=== PATIENT | male | born 1980 | race Caucasian/White ===

== ENCOUNTER 2016-08-14 13:35 | Emergency (ER) | payer BC ==
[~2016-08-14] VITALS: Ht 188 cm; Wt 89.0 kg
[2016-08-14 13:43] VITALS: Ht 188 cm; Wt 89.0 kg
[2016-08-14] MEDS ORDERED: GLUCAGON INJ 1 MG in SYRINGE 0 ML IV STA (13:57)
[2016-08-14] MEDS ORDERED: LORAZEPAM 2 MG/ML 1 ML VIAL IV STA (13:57)
[2016-08-14] MEDS ORDERED: RANI150T3 PO (14:13)
[2016-08-14] MEDS ORDERED: GLUCAGON INJ 1 MG in SYRINGE 0 ML IV ONE (14:15)
[2016-08-14] MEDS ORDERED: OMEP40CA41 PO (16:00)
--- NOTE | 2016-08-14 16:01 | EMERGENCY ROOM VISIT NOTE ---
History First contact with patient: 13:45 Chief Complaint: FOOD BOLUS Stated Complaint: SOMETHING STUCK IN THROAT Nursing Triage Summary: pt to the ED after eating lunch and feels like a dimas is stuck in his throat pt states he can drink and swallow water and able to speak without difficulty History of Present Illness The patient is a 35 year old male who presents to the Emergency Room with complaints of a possible fluid bolus. The patient reports that he was eating lunch and ate a kinyarwanda dimas and felt like it was stuck in his throat. He has been drinking water without difficulty. The patient states that he is very anxious about his symptoms. This occurred approximate 2 hours ago and he has been drinking a large amount of water since then. He states this has happened one time previously, when the patient was 5 years old. He denies any difficulty breathing. He denies any nausea, vomiting or abdominal pain. Review of Systems A complete 10-point Review of Systems was discussed with the patient, with pertinent positives and negatives listed in the History of Present Illness. All remaining Review of Systems questions can be considered negative unless otherwise specified. Social History Smoking Status: Never Smoker Current/Historical Medications Scheduled Omeprazole (Prilosec), 40 MG PO DAILY Ranitidine Hcl (Zantac), 150 MG PO BID Allergies Coded Allergies: Sulfa Antibiotics (Verified Allergy, Unknown, RASH, 08/14/16) Physical Exam Vital Signs Date Time Temp Pulse Resp B/P Pulse Ox O2 Delivery O2 Flow Rate FiO2 08/14/16 16:06 36.3 111 18 138/91 97 08/14/16 16:03 111 18 138/91 97 Room Air 08/14/16 14:54 112 18 142/94 97 Room Air 08/14/16 13:43 36.3 116 18 140/92 98 Physical Exam VITALS: Vitals are noted on the nurse's note and reviewed by myself. Vital signs stable. GENERAL: This is a 35-year-old male, in no acute distress, nondiaphoretic, well- developed well-nourished. MOUTH: Mucous membranes moist. Tonsils are not enlarged. Pharynx without erythema or exudate. Uvula midline. Airway patent. NECK: Supple without nuchal rigidity. No lymphadenopathy. HEART: Regular rate and rhythm without murmurs gallops or rubs. LUNGS: Clear to auscultation bilaterally without wheezes, rales or rhonchi. ABDOMEN: Positive bowel sounds x 4. Soft, nontender to palpation. NEURO: Patient was alert and oriented to person place and time. Medical Decision & Procedures Medications Administered Medications (Trade) Dose Ordered Sig/Javy Route Start Time Stop Time Status Last Admin Dose Admin Lorazepam 1 mg 1 mg NOW STAT IV 08/14/16 13:57 08/14/16 14:00 DC 08/14/16 14:20 1 MG Glucagon/Syringe (Glucagon Inj/ Syringe) 1 ml @ 1 mls/min NOW ONCE IV 08/14/16 14:15 08/14/16 14:16 DC 08/14/16 14:22 1 MLS/MIN Medical Decision Differential diagnosis includes food bolus, esophagitis, among others. The patient was evaluated as above. IV access was obtained. The patient was treated with 1 mg Ativan and 1 mg of glucagon IV. The patient is a 35-year-old male who presents today complaining of a possible food bolus. The patient had no difficulty breathing and was able to swallow liquids without any difficulty. He was given 1 mg Ativan and 1 mg glucagon. On reevaluation, the patient stated that he felt much better. I am unsure if this represents a true food bolus or esophagitis. I will start the patient on Prilosec and did give him information for GI follow-up. He was encouraged to return for any new/concerning symptoms. Based on the patient's presentation, lab results, and imaging studies, I feel the patient is stable for outpatient treatment. The patient's case was reviewed with Dr. Parker, ED attending physician, who agreed with my assessment and treatment plan. Discharge instructions were reviewed with the patient. The patient verbalized understanding of my assessment and treatment plan and was discharged home in good condition. Impression Primary Impression: Foreign body sensation in throat Departure Information Dispostion Home / Self-Care Condition GOOD Prescriptions Omeprazole (PRILOSEC) 40 Mg Cap 40 MG PO DAILY for 10 Days, #10 CAP Prov: Stefani Hendricks .[place] 08/14/16 Referrals KATIE CORTES (PCP) Td Roman M.D. Patient Instructions My [facility] Additional Instructions Prilosec as prescribed. Call gastroenterology to schedule a follow-up if you have persistent symptoms tomorrow. Return to the emergency department difficulty breathing, difficulty swallowing or any other new/concerning symptoms.
[2016-08-14 16:06] VITALS: BP 138/91; PULSE 111; TEMP 36.3; O2SAT 97
== END 2016-08-14 16:06 | disposition home or self-care (01) ==
LOC: C.EDB 13:39
DX: R09.89 Other specified symptoms and signs involving the circulatory and respiratory systems (principal); Z79.899 Other long term (current) drug therapy; Z88.2 Allergy status to sulfonamides